=== PATIENT | female | born 1955 | race Caucasian/White ===

== ENCOUNTER 2019-02-09 18:20 | Emergency (ER) | payer BC, OTHER ==
[~2019-02-09] VITALS: Ht 162.6 cm; Wt 77.1 kg
[2019-02-10] MEDS ORDERED: BACLOFEN 10 MG TAB PO ONE (02:00)
[2019-02-10] MEDS ORDERED: HYDROcodone-ACET 10/325MG TAB PO ONE (02:00)
[2019-02-10 02:23] VITALS: BP 114/77
== END 2019-02-10 04:19 | disposition home or self-care (01) ==
LOC: ER 18:25
DX: S80.00XA Contusion of unspecified knee, initial encounter (principal); R51 Headache; M62.838 Other muscle spasm; V43.52XA Car driver injured in collision with other type car in traffic accident, initial encounter; Y93.89 Activity, other specified; Y99.8 Other external cause status; Y92.410 Unspecified street and highway as the place of occurrence of the external cause
CPT/HCPCS: 70450; 73562

== ENCOUNTER 2022-07-28 07:54 | Day surgery (SDC) | payer BC ==
[~2022-07-28] VITALS: Ht 167.6 cm; Wt 64.9 kg
[2022-07-28] VITALS (10 sets, daily range): BP systolic 87–101; BP diastolic 43–60
[~2022-07-28 07:54] MED LIST: AMIO200T33 PO; APIX2.5T PO; ASPI325T4 PO; ATOR20TA50 PO; CAR3125T PO; FURO40TA4 PO; LEVO25TA6 PO; NAP500T PO; SACU1TAB PO
[2022-07-28] MEDS ORDERED: HEPARIN SODIUM (PORCINE) 5000 UNITS/ML 1ML VIAL ONE (09:22)
[2022-07-28] MEDS ORDERED: ANGIOMAX 250 MG VIAL IV ONE (09:22)
[2022-07-28] MEDS ORDERED: SODIUM CHL 0.9% 0 ML ONE (09:23)
[2022-07-28] MEDS ORDERED: fentaNYL CITRATE 100 MCG/2 ML VL ONE (09:23)
[2022-07-28] MEDS ORDERED: VERAPAMIL 2.5MG/ML INJ 2ML VIAL IV ONE (09:23)
[2022-07-28] MEDS ORDERED: MIDAZOLAM HCL 2MG/2ML 2ml VIAL (1mg/ml) ONE (09:23)
[2022-07-28] MEDS ORDERED: LIDOCAINE 2%HCL (LOCAL ANESTH.) INJ 10ml MDV ONE (09:24)
== END 2022-07-28 12:20 | disposition home or self-care (01) ==
LOC: CATH 07:54
PROVIDERS: ATTEND Internal Medicine
DX: I42.8 Other cardiomyopathies (principal); I50.20 Unspecified systolic (congestive) heart failure; E78.00 Pure hypercholesterolemia, unspecified; E03.9 Hypothyroidism, unspecified; Z79.899 Other long term (current) drug therapy; Z20.822 Contact with and (suspected) exposure to COVID-19
CPT/HCPCS: 93458; C1769; C1894; J1644; J2001; J2250; J3010; J7030; U0003